=== PATIENT | female | born 1945 | race Caucasian/White ===

== ENCOUNTER 2022-07-02 00:05 | Emergency (ER) | payer MEDICARE ==
[~2022-07-02] VITALS: Ht 160 cm; Wt 54.4 kg
[2022-07-02] MEDS ORDERED: LOSA25TA27 PO (00:19)
[2022-07-02] MEDS ORDERED: ATEN25TA PO (00:19)
[2022-07-02] MEDS ORDERED: SIMV-49 PO (00:19)
--- NOTE | 2022-07-02 00:20 | NUR ---
Patient BIB [id number] from home home for c/o N/V, CUELLAR that started 3hrs [employer] OUTSIDE.
--- NOTE | 2022-07-02 00:44 | NUR ---
Dr. Schafer at bedside for MSE.
[2022-07-02] MEDS ORDERED: ONDANSETRON 4 MG/2 ML VIAL IV ONE (00:45)
[2022-07-02 00:51] LABS: HEMATOCRIT 42.2 % (31.2-41.9); MEAN CORPUSCULAR HEMOGLOBIN 30.7 uug (24.7-32.8); MEAN CORPUSCULAR VOLUME 92.7 fL (75.5-95.3); PLATELET COUNT (AUTO) 269 K/uL (179-408)
[2022-07-02 01:00] LABS: CARBON DIOXIDE 28 mmol/L (21-32); CHLORIDE 102 mmol/L (98-107); CREATININE 0.6 mg/dL (0.6-1.3); GLUCOSE 138 mg/dL (74-106); POTASSIUM 3.9 mmol/L (3.5-5.1); UREA NITROGEN, BLOOD 24 mg/dL (7-18)
[2022-07-02] MEDS ORDERED: ONDANSETRON 4 MG/2 ML VIAL ONE (01:01)
[2022-07-02 01:14] LABS: ALANINE AMINOTRANSFERASE 32 U/L (14-59); ALKALINE PHOSPHATASE 89 U/L (50-136); ASPARTATE AMINOTRANSFERASE 29 U/L (15-37); BILIRUBIN,DIRECT 0.1 mg/dL (0.0-0.2); BILIRUBIN,TOTAL 0.6 mg/dL (0.2-1.0); TOTAL PROTEIN, SERUM 7.5 g/dL (6.4-8.2)
--- NOTE | 2022-07-02 01:40 | NUR ---
Dr. Schafer at bedside.
[2022-07-02] MEDS ORDERED: IV NORMAL SALINE 500 ML IV ONE (01:45)
[2022-07-02] MEDS ORDERED: IV NORMAL SALINE 250 ML IV ONE (02:15)
[2022-07-02] MEDS ORDERED: IOHEXOL 350 100 ML INFUS..BTL ONE (02:15)
[2022-07-02] MEDS ORDERED: SWABABLE VALVE TRANSFER SET EA MC ONE (02:15)
--- NOTE | 2022-07-02 02:36 | NUR ---
Patient back from CT.
[2022-07-02] MEDS ORDERED: PANTOPRAZOLE SODIUM 40 MG VIAL ONE (03:07)
[2022-07-02] MEDS ORDERED: PANTOPRAZOLE SODIUM IV 80 MG in IV DEXTROSE 5% 500 ML IV ONE (03:15)
[2022-07-02] MEDS ORDERED: PANTOPRAZOLE SODIUM 40 MG VIAL IV ONE (03:15)
[2022-07-02] MEDS ORDERED: ONDA4TAB11 PO (03:16)
[2022-07-02] MEDS ORDERED: FAMO-132 PO (03:16)
[2022-07-02 03:30] VITALS: BP 106/58
--- NOTE | 2022-07-02 03:30 | NUR ---
Patient does not wish to proceed with medical care recommended by Dr. Schafer. Patient given information related to possible complications, up to and including , which could occur as a result of leaving the hospital at this time. Patient verbalizes understanding of risks involved due to leaving against medical advice. Patient has signed AMA form.
== END 2022-07-02 03:31 | disposition left against medical advice (07) ==
LOC: ER 00:12
DX: R11.2 Nausea with vomiting, unspecified (principal); R06.00 Dyspnea, unspecified; Z20.822 Contact with and (suspected) exposure to COVID-19; Z53.29 Procedure and treatment not carried out because of patient's decision for other reasons; R79.1 Abnormal coagulation profile; D72.829 Elevated white blood cell count, unspecified; E78.5 Hyperlipidemia, unspecified; I44.2 Atrioventricular block, complete; Z95.0 Presence of cardiac pacemaker; Z87.11 Personal history of peptic ulcer disease; Z96.653 Presence of artificial knee joint, bilateral; Z96.643 Presence of artificial hip joint, bilateral
CPT/HCPCS: 99285; 96374; 71275; 96361; 96375; 87426; 80076; 80048; 83880; 85025; 85379; 85730; 87040 ×2; 84484 ×2; 36415; 93005; 83605; J2405; Q9967; C9113; J7040; A4663